=== PATIENT | female | born 1975 | race Caucasian/White ===

== ENCOUNTER 2019-07-15 20:32 | Emergency (ER) | payer BC, SELFPAY ==
[2019-07-15 20:33] VITALS: BP 150/98; PULSE 105; RESP 18; TEMP 38.1; O2SAT 96; BMI 34.0
[2019-07-15 20:36] VITALS: BP 150/98; PULSE 103; RESP 20; TEMP 38; O2SAT 96; O2SAT 97
[2019-07-15 21:40] VITALS: BP 125/86; PULSE 86; RESP 18; TEMP 38.1; O2SAT 97
[2019-07-15 21:50] LABS: Absolute Lymphocyte Count 0.94 X10^3/uL (0.83-4.51); Basophil# 0.01 X10^3/uL; Basophil% 0.2 % (0-1); Hematocrit 46.8 % (37-47); Hemoglobin 15.6 g/dL (12.0-15.0); Lymphocyte # 0.94 X10^3/ul (4.0); Lymphocyte % 17.5 % (19-41); Mean Corp Hgb Conc 33.3 g/dL (32-36); Mean Corpuscular Hgb 30.6 pg (27.0-32.0); Mean Corpuscular Volume 91.9 fL (81-99); Mean Platelet Vol. 10.5 fl (6.2-12.0); Monocyte# 0.44 X10^3/uL; Monocyte% 8.2 % (0-10); NRBC Flagged by Analyzer 0 % (0-5); Neutrophil # 3.97 X10^3/uL (2.7-7.7); Neutrophil % 73.7 % (47-70); Platelet Count 221 K/mm3 (150-450); RBC Distribution Width CV 11.9 % (11.6-14.6); RBC Distribution Width SD 40.6 fl (35.1-43.9); Red Blood Count 5.09 M/mm3 (4.2-5.4); White Blood Count 5.4 K/mm3 (4.4-11.0)
[2019-07-15] MEDS: 0.9% Normal Saline 1,000 ML 1000 ML IV (21:51)
[2019-07-15] MEDS: Ondansetron 4 MG/2 ML Vial IV (21:52)
--- NOTE | 2019-07-15 22:00 | RAD_ITS ---
STUDY: X-RAY CHEST REASON FOR EXAM: Female, 44 years old. Shortness of breath, cough, vomiting, sore throat TECHNIQUE: Frontal view COMPARISON: December 09, 2010 FINDINGS: The lungs are expanded with mild basilar interstitial prominence. Left basilar atelectasis. Normal size heart. Normal mediastinum and terell. Normal visualized pulmonary arteries. Normal visualized aortic arch and descending thoracic aorta. Mild scoliosis of the thoracic spine. Normal visualized ribs, clavicles, and shoulders. There is no demonstrated abnormality of the visualized soft tissue structures of the upper abdomen. RAD/Chest 1 View (Portable) IMPRESSION: Mild basilar interstitial prominence with left basilar atelectasis. Electronically Signed: Andrei Newman DO at 22:22 EDT Tel [phone], Service support ,
[2019-07-15 22:03] LABS: ALB/GLOB Ratio 0.9 RATIO (0.9-2.4); AST(SGOT) 45 U/L (15-37); Alanine Aminotransfer ALT/SGPT 42 U/L (13-56); Albumin, Serum 3.5 g/dL (3.2-5.0); Alkaline Phosphatase 87 U/L (45-117); Anion Gap 9 (5-15); BUN 11 mg/dL (7-18); BUN/Creat Ratio 14.7 RATIO (10-20); Calcium,Total 8.5 mg/dL (8.5-10.1); Chloride 108 mmol/L (98-107); Creatinine, Serum 0.75 mg/dL (0.55-1.02); EST Glomerular Filtration Rate 89 mL/min (>60); Est Glom Filt Rate - Afr Amer 108 mL/min (>60); Estimated Creatinine Clearance 100.04 ml/min; Glucose 100 mg/dL (74-106); Lipase 113 U/L (73-393); Potassium 3.3 mmol/L (3.5-5.1); Protein, Total 7.5 g/dL (6.4-8.2); Sodium Level 141 mmol/L (136-145)
--- NOTE | 2019-07-15 22:19 | ED.DCSUM_ITS ---
- ER Visit Summary Date of Service: 07/15/19 Chief Complaint: Cough History of Present Illness: The patient is a 44 F who presents with cough and congestion that is been getting worse over the past couple days. Patient states she feels like she has some tightness in her upper chest as well. Patient denies any sputum production. Patient states she feels short of breath at times. Patient admits to some nausea and vomiting. Patient states she feels dehydrated. Patient denies any dysuria but states her urine has been dark. Patient does admit to some pain between her shoulder blades as well. Patient also admits to a headache. Patient states she has been having a fever up to 102 at home. Physical Examination: Vital signs are stable. Patient has a temperature of 100.6 here. Patient is in no acute distress. Oral mucosa is pink and moist. Oropharynx is clear. Neck is supple. Trachea is midline. There is no JVD. Heart was regular rate and rhythm. Lungs are clear and equal bilaterally. Abdomen is soft. Bowel sounds are normal. There is no tenderness. Cranial nerves II through XII are intact. There are no focal motor or sensory deficits. Test Results: CBC and comprehensive metabolic profile were essentially within normal limits. Urinalysis was normal. Portable chest x-ray shows bibasilar interstitial prominence with left basilar atelectasis. There is no acute infiltrate. This was interpreted by myself and the radiologist. Emergency Department Course and Treatment: Patient was given IV fluids and Zofran here. Patient was given a dose of Tylenol. Patient was advised that this could be a viral upper respiratory infection including coronavirus. Patient was instructed to isolate herself for the next 2 weeks. Patient was instructed to follow-up with her primary care physician in 5 to 7 days. Patient understood and was agreeable with the plan. All questions were answered. Disposition: Discharge home Impression: Viral upper respiratory infection This note was generated with [employer] dictation software. It may contain incorrect words, spelling, and punctuation that were not noted in review of the chart prior to signing ED Disposition - Plan for ED Patient: Disposition: Home or Assisted Living Diagnosis: Viral upper respiratory tract infection with cough Instructions: ED URI Viral Referrals: Iliana Maxwell MD [COURTESY STAFF PHYSICIAN] - 3-5 Days
[2019-07-15 22:38] LABS: Mucous, Urine 0 SEEN /hpf (<or=2+); Red Blood Cells-Urine 0 SEEN /hpf (0-5)
[2019-07-15 22:42] LABS: Color, Urine Yellow (Yellow); Glucose, Dipstick Normal (Normal); Ketone-Dipstick Negative (Negative); Leukocyte Esterase-Dipstick Negative /ul (Negative); Nitrite-Dipstick Negative (Negative); Occult Blood-Urine Negative /ul (Negative); Protein-Dipstick Negative (Negative); Specific Gravity, Urine 1.015 (1.002-1.030); Urine Bilirubin Dipstick Negative (Negative); Urine Clarity Clear (Clear); Urine Urobilinogen Normal (Normal)
[2019-07-15 22:51] LABS: Bacteria 1+ /hpf (None Seen); Squamous Epithelial Cells - UA 0-5 SEEN /hpf (5-10); White Blood Cells 0-5 SEEN /hpf (0-5)
[2019-07-15] MEDS: Acetaminophen 325 MG Tablet 1000 MG PO (23:40)
[2019-07-15 23:45] VITALS: BP 126/76; PULSE 92; RESP 20; TEMP 37.6; O2SAT 97
== END 2019-07-15 23:52 | disposition home or self-care (01) ==
PROVIDERS: Emergency Provider Emergency Medicine; PCP Student in an Organized Health Care Education/Training Program
DX: J06.9 Acute upper respiratory infection, unspecified (principal)
CPT/HCPCS: 71045; 80053; 81001; 83690; 85025; 96361; 96374; 99285; J7030; A4216; J2405

== ENCOUNTER 2019-12-10 07:16 | Observation (INO) | payer BC, SELFPAY ==
[2019-12-10] VITALS (8 sets, daily range): BP systolic 121–179; BP diastolic 79–104; PULSE 59–103; RESP 12–22; TEMP 36.3–36.8; O2SAT 96–100; BMI 35.5; BMI 36.1
--- NOTE | 2019-12-10 07:19 | RAD_ITS ---
STUDY: X-RAY CHEST REASON FOR EXAM: Female, 44 years old. Chest tightness and dizziness since 12-04-19 TECHNIQUE: Single AP portable view of the chest. COMPARISON: Comparison is made with prior study dated 07/15/2019. FINDINGS: EKG electrodes are seen. The lungs are clear and expanded. There is no demonstrated pleural abnormality. Normal size heart. Normal mediastinum and terell. Normal visualized pulmonary arteries. Normal visualized aortic arch and descending thoracic aorta. Normal visualized thoracic spine. Normal visualized ribs, clavicles, and shoulders. There is no demonstrated abnormality of the visualized soft tissue structures of the upper abdomen. RAD/Chest 1 View (Portable) IMPRESSION: Normal x-ray examination of the chest. Electronically Signed: Alfredo Pickett, at 8:10 EDT , Service support ,
--- NOTE | 2019-12-10 07:19 | EKG12_ITS ---
Test Reason : SYNCOPE Blood Pressure : / mmHG Vent. Rate : 076 BPM Atrial Rate : 076 BPM P-R Int : 154 ms QRS Dur : 086 ms QT Int : 374 ms P-R-T Axes : 008 -03 012 degrees QTc Int : 420 ms Normal sinus rhythm Normal ECG Confirmed by SANTANA SEBASTIAN, MARIAMA ([id number]), newspaper editor [employer] ([id number]) on 12/11/2019 11:31:45 A M Referred By: NOHEMI Confirmed By:SUE DILLON MD
[2019-12-10 07:35] LABS: Absolute Lymphocyte Count 2.26 X10^3/uL (0.83-4.51); Absolute Neutrophil Count 4.9 X10^3/uL (2.0-7.7); Basophil# 0.04 X10^3/uL; Basophil% 0.5 % (0-1); Eosinophil# 0.15 X10^3/uL; Eosinophils% 1.8 % (0-5); Hematocrit 45.9 % (37-47); Hemoglobin 15.3 g/dL (12.0-15.0); Lymphocyte # 2.26 X10^3/ul (4.0); Lymphocyte % 27.1 % (19-41); Mean Corp Hgb Conc 33.3 g/dL (32-36); Mean Corpuscular Hgb 30.8 pg (27.0-32.0); Mean Corpuscular Volume 92.4 fL (81-99); Mean Platelet Vol. 10.8 fl (6.2-12.0); Monocyte% 10.8 % (0-10); NRBC Flagged by Analyzer 0 % (0-5); Neutrophil # 4.94 X10^3/uL (2.7-7.7); Neutrophil % 59.3 % (47-70); Platelet Count 233 K/mm3 (150-450); RBC Distribution Width CV 11.6 % (11.6-14.6); RBC Distribution Width SD 39.1 fl (35.1-43.9); Red Blood Count 4.97 M/mm3 (4.2-5.4); White Blood Count 8.3 K/mm3 (4.4-11.0)
--- NOTE | 2019-12-10 07:52 | ED.VIS.GEN ---
History of Present Illness Chief Complaint: Syncope Informant: Patient Onset: Weeks Current Severity: Mild Narrative: Patient presents with intermittent chest pressure sense of weakness for over a week, nothing triggers the sensation that comes and goes she was at work today when she had a sense of chest discomfort and pressure she went to a local urgent care center and they sent her to the emergency department. Her symptoms are resolved. Nothing specifically triggers this sense of chest pressure, she has no history of MS PE or DVT she is able to extrude all of her daily activities physical activity and eating does not trigger the discomfort she has no history of MS PE or DVT her only family history is in grandfather, she takes no medications has no chronic illnesses she has had no fever cough no coronavirus exposures eating and drinking well executing all of her daily activities that difficulty. Currently resting comfortably in the bed in no distress vital signs unremarkable mother no associated symptoms The patient does not have syncope with these episodes rather she has a sense of whole body weakness Past Medical History - Allergies and Home Meds Allergies/Adverse Reactions: Allergies tramadol Adverse Reaction (Mild, Verified 12/10/19 07:19) NEEDS FOLLOW-UP REPORTS HEADACHE Primary Care Physician: Hiro Velez DO [Primary Care Provider] - Past Medical History: None Smoking Status: Never smoker Review of Systems General: Denies: Chills, Fever, Sweats Eyes: Denies: Visual changes - bilaterally, Diplopia ENT: Denies: Rhinorrhea, Sore throat Cardiovascular: Reports: - - She describes the chest discomfort as an intermittent pressure lasts for a few minutes. Denies: Chest pain, Palpitations Respiratory: Denies: Dyspnea, Cough, Dyspnea on exertion Gastrointestinal: Denies: Abdominal pain, Nausea, Vomiting, Diarrhea, Melena, Hematochezia Genitourinary: Denies: Dysuria, Hematuria, Frequency Musculoskeletal: Denies: Back pain, Extremity Pain Skin: Denies: Rash, Wounds Neurological: Denies: Headache, Weakness, Numbness Physical Exam Vital Signs/Narrative: Vital Signs Temp Pulse Resp BP Pulse Ox 12/10/19 07:17 97.3 F L 90 16 179/104 H 100 General: Well nourished, Well developed, No Acute Distress Head: Normocephalic, Atraumatic Eyes: Perrl, EOMI ENT: Moist mucous membranes, No rhinorrhea Neck: Supple, Nontender Cardiovascular: Regular rate, Regular rhythm, No murmurs Respiratory: No distress, CTA bilaterally, Chest nontender Abdomen: Soft, Nontender, Nondistended, Normal bowel sounds Back: Nontender, Normal Inspection Extremities: Nontender, No edema Skin: Normal color, No rash Neurological: Alert, Oriented x3, Cranial nerves II-XII grossly intact, Normal Strength, Normal Sensation Psychological: Normal affect, Normal Mood Diagnostic/Tx/Re-eval - Medical Decision Making The patient is in no distress her vital signs are unremarkable, her EKG shows a sinus rhythm rate of 76 no acute injury pattern intervals within normal range given her age and her complaints and her history of differentials rather broad ED evaluations pursued she remains asymptomatic she is been having these intermittent sense of chest pressure for about a week Patient's ED screening evaluation is generally unremarkable see all those reports, we discussed inpatient versus outpatient management, we asked the hospital see the patient after discussions the plan is to admit the patient for further management of all the above Final impression chest pain Admit stable ED Disposition - Plan for ED Patient: Diagnosis: Chest pain Referrals: Hiro Velez DO [Primary Care Provider] -
[2019-12-10 07:54] LABS: Anion Gap 5 (5-15); BUN 14 mg/dL (7-18); BUN/Creat Ratio 14.3 RATIO (10-20); Calcium,Total 8.4 mg/dL (8.5-10.1); Chloride 110 mmol/L (98-107); Creatinine, Serum 0.98 mg/dL (0.55-1.02); EST Glomerular Filtration Rate 66 mL/min (>60); Est Glom Filt Rate - Afr Amer 79 mL/min (>60); Estimated Creatinine Clearance 76.56 ml/min; Glucose 91 mg/dL (74-106); Potassium 3.6 mmol/L (3.5-5.1); Sodium Level 141 mmol/L (136-145)
[2019-12-10] MEDS: 0.9% Normal Saline 1,000 ML 150 ML IV (08:00)
[2019-12-10] MEDS: Aspirin 325 MG Tablet PO (09:43)
--- NOTE | 2019-12-10 10:32 | EKG12_ITS ---
Test Reason : Blood Pressure : / mmHG Vent. Rate : 059 BPM Atrial Rate : 059 BPM P-R Int : 154 ms QRS Dur : 086 ms QT Int : 404 ms P-R-T Axes : 019 002 011 degrees QTc Int : 399 ms Sinus bradycardia Otherwise normal ECG When compared with ECG of 10-DEC-2019 07:39, MANUAL COMPARISON REQUIRED, DATA IS UNCONFIRMED Confirmed by SANTANA SEBASTIAN, MARIAMA ([id number]), slot editor ENID FRAZIER ([id number]) on 12/16/2019 8:52:06 AM Referred By: SURESH Confirmed By:SUE DILLON MD
--- NOTE | 2019-12-10 10:55 | ECHOD_ITS ---
Reason For Study: SYNCOPE/NEAR SYNCOPE Procedure This was a 2D Doppler, Color Flow transthoracic echocardiogram. Exam performed in department. Left Ventricle Normal LV size. The estimated ejection fraction is 60 %. No evidence for diastolic dysfunction. No regional wall motion abnormalities noted. Right Ventricle Normal RV size. Normal systolic function. Atria Normal left atrium. Normal right atrium. No doppler evidence for ASD. Mitral Valve There is no mitral valve stenosis. No mitral valve insufficiency. Tricuspid Valve There is no tricuspid stenosis. Unable to estimate RV systolic pressure due to insufficient tricuspid regurgitant envelope. Trivial tricuspid valve insufficiency. Aortic Valve Trisinus/trileaflet aortic valve. There is no aortic stenosis. No aortic valve insufficiency. Pulmonic Valve There is no pulmonic valvular stenosis. No pulmonic valve insufficiency. Great Vessels Normal aortic root. Pericardium/Pleural No pericardial effusion. MMode/2D Measurements & Calculations LVIDd: 4.7 cm IVSd: 0.83 cm Ao root diam: 3.7 cm LVIDs: 3.0 cm LVPWd: 0.77 cm RVDd: 3.3 cm FS: 35.9 % LAV(MOD-bp): 59.3 ml LA A4 area: 19.9 cm2 LA dimension(2D): 3.6 cm LAV(MOD-bp) Indexed: 26.4 ml/m2 LAV(MOD-sp2): 61.9 ml LAV(MOD-sp4): 56.0 ml RA A4 area: 16.3 cm2 Time Measurements MV dec time: 0.20 sec Doppler Measurements & Calculations MV E max aubrey: 101.9 cm/sec Lat Peak E' Aubrey: 13.8 cm/sec Med Peak E' Aubrey: 11.4 cm/sec MV A max aubrey: 85.4 cm/sec E/E' lat: 7.4 E/E' med: 8.9 MV E/A: 1.2 Ao V2 max: 164.8 cm/sec LV V1 max: 150.0 cm/sec PA V2 max: 106.0 cm/sec Ao max P.9 mmHg LV V1 max P.0 mmHg Interpretation Summary The estimated ejection fraction is 60 %. No evidence for diastolic dysfunction. Ordering Physician: Alfredo Robertson Referring Physician: Hiro Velez Performed By: Shila Barrientos RDCS, RVT
--- NOTE | 2019-12-10 15:05 | STRESSREP_ITS ---
Stress Test Report Date: 12/10/2019 Procedure: Pharmacologic stress nuclear imaging study Indications: Chest pain Consent: Per the patient Procedure: The patient underwent pharmacologic (Regadenoson) evaluation with a peak heart rate of 112 beats per minute (63 %predicted maximal heart rate) and a peak blood pressure of 128/94 mmHg. The baseline ECG demonstrated normal sinus rhythm. EKG during lexiscan infusion revealed no significant ischemic changes. EKG post infusion revealed no significant ischemic changes [There were no cardiac dysrhythmias pretest, during pharmacologic infusion, or recovery]. Patient had chest tightness with Lexiscan infusion which is likely nonspecific response. The examination was discontinued secondary to completion of protocol. Impression: 1. Lexiscan stress test test is negative for Lexiscan infusion induced EKG changes of ischemia. 2. Lexiscan stress test test is positive for Lexiscan infusion induced chest tightness which is likely a nonspecific response. 3. Results of the nuclear portion of the test is as below Myocardial perfusion imaging study: Technique: The patient was injected with 14.8 millicuries of technetium 99m Cardiolite and subsequently rest SPECT Cardiolite nuclear imaging was obtained in the horizontal long, vertical long, and short axis views. The patient underwent pharmacologic (Regadenoson) evaluation. Please see above for details. The patient was injected with 44.7 millicuries of technetium 99m Cardiolite and subsequently stress SPECT Cardiolite nuclear imaging was obtained in the horizontal long, vertical long, and short axis views. A gated Cardiolite study at peak stress was obtained. Interpretation: Rest and stress SPECT Cardiolite nuclear imaging status post realignment, normalization, and attenuation correction demonstrate overall normal myocardial radioisotope uptake. Gated images reveal no significant regional wall motion abnormalities. The reported LVEF is greater than 70 %. Impression: 1. There is no evidence of significant ischemia or infarction. 2. Estimated ejection fraction is greater than 70%. This note was generated with [employer] software. It may contain incorrect words, spelling, and punctuation that were not noted in checking the note before signing.
--- NOTE | 2019-12-10 17:40 | HP.PCM_ITS ---
Problem List (1) Pre-syncope Status: Acute (2) Chest pain Status: Acute Qualifiers: Chest pain type: precordial pain Qualified Code(s): R07.2 - Precordial pain History of Present Illness Date of Admission: 12/10/19 Chief Complaint: Chest pain, presyncope The patient is a 44 year old F who was seen in the emergency room at [facility] with chief complaints of chest pain which she described as a tightness in the center of her chest area radiating into her left upper neck area along with several episodes of severe lightheadedness/presyncope since this past Saturday. Patient states that the chest discomfort is been continuous since Saturday, she did not complain that it increased with activity, patient did not complain of any shortness of breath, diaphoresis, or nausea. Work-up in the ER included an EKG which showed normal sinus rhythm without evidence of ischemic changes, patient's chest x-ray was unremarkable, patient's labs including cardiac enzymes were unremarkable. Patient will be placed into observation status on PCU, cardiac enzymes will be repeated and she will have a pharmacological nuclear stress test today as well as an echocardiogram. 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 Denies: Claudication, Chest Pressure, Edema, Heaviness, Orthopnea, Palpitations, Paroxysmal Noc. Dyspnea Respiratory: Denies: Cough, Hemoptysis, Pleuritic Pain, Shortness of Breath, Shortness of breath at rest, Shortness of breath upon exertion, Sputum production Gastrointestinal: Denies: Abdominal Pain, Constipation, Diarrhea, Hematemesis, Hematochezia, Nausea, Melena, Vomiting Genitourinary: Denies: Dysuria, Frequency, Hematuria, Hesitancy, Urgency Gynecological: Denies: Breast symptoms Musculoskeletal: Denies: Back Pain, Foot Pain, Hand Pain, Joint Pain, Joint stiffness, Joint swelling, Joint Tenderness, Leg Pain Skin: Denies: Dryness, Pruritis, Rash Neurological: Denies: Blurred vision, Double vision, Change in Speech, Slurred speech, Difficulty swallowing, Focal weakness, Headaches, Numbness, Tingling Psychiatric: Denies: Anxiety, Depression, Homicidal Ideations, Suicidal Ideations Endocrine: Denies: Change in Body Habitus, Heat/ Cold Intolerance, Polydipsia, Polyuria Hematologic/ Lymphatic: Denies: Adenopathy, Anemia, Easy Bruising, Easy Bleeding, Petechiae, Purpura VTE Information - Inpt Only VTE Present on Admission: No VTE Mechan Device Prophylaxis: None VTE Pharm Prophylaxis ordered?: No Reason prophylaxis not ordered:: Treatment Not Indicated Patient Problems: Active and Suspected Problems Chest pain (Acute) Pre-syncope (Acute) - Physical Exam Vitals/I&O's: Vital Signs Temp Pulse Resp BP Pulse Ox 98.1 F 66 14 142/88 H 100 12/10/19 17:21 12/10/19 17:21 12/10/19 17:21 12/10/19 17:21 12/10/19 17:21 Oxygen Delivery Method Room Air Weight: 111 kg Body Mass Index (BMI) 36.1 Intake and Output for Last 24 Hours 12/08/19 12/09/19 12/10/19 23:59 23:59 23:59 Intake Total 532.5 / 532.5 Balance 532.5 / 532.5 General: Alert, Oriented x3, Cooperative, No apparent distress, Well developed, Well nourished HEENT: Atraumatic, PERRLA, EOMI, Normocephalic Oral: Moist Mucosa Neck: Supple, No JVD, Negative Carotid Bruits, Trachea Midline, Thyroid Normal Size and Texture Lungs: Clear to auscultation, Normal air movement, No rhonchi, No wheeze, No rales Cardiovascular: Regular rate, Regular Rhythm, Normal S1, Normal S2, No murmurs, PMI Normal, No rub noted, No Gallop Abdomen: Bowel Sounds Present, Soft, Non Tender, Non-Distended Extremities: No clubbing, No cyanosis, No edema, Capillary Refill Less than 3 Seconds Skin: No rashes, No breakdown Musculoskeletal: No Tenderness to Palpation of Joints or Extremities Neurological: Cranial nerves II-XII grossly intact, Neuro grossly intact, Sensory exam intact to light touch and pain, Coordination normal Psych/Mental Status: Normal Affect, Appropriate, Alert and oriented to time, place, person, mood and affect Laboratory Results 12/10/19 07:25: WBC 8.3, RBC 4.97, Hgb 15.3 H, Hct 45.9, MCV 92.4, MCH 30.8, MCHC 33.3, RDW Std Deviation 39.1, RDW Coeff of Nura 11.6, Plt Count 233, MPV 10.8, Immature Gran % (Auto) 0.500, Neut % (Auto) 59.3, Lymph % (Auto) 27.1, [place] % (Auto) 10.8 H, Eos % (Auto) 1.8, Baso % (Auto) 0.5, Absolute Neuts (auto) 4.9, Absolute Lymphs (auto) 2.26, Nucleated RBC % 0 12/10/19 07:25: Sodium 141, Potassium 3.6, Chloride 110 H, Carbon Dioxide 26.0, Anion Gap 5, BUN 14, Creatinine 0.98, Estim Creat Clear Calc 76.56, Est GFR (MDRD) Af Amer 79, Est GFR (MDRD) Non-Af 66, BUN/Creatinine Ratio 14.3, Glucose 91, Calcium 8.4 L, Troponin I < 0.015 12/10/19 10:35: Troponin I < 0.015 12/10/19 14:43: Troponin I < 0.015 Current Medications Morphine Sulfate () 2 mg IV Q3H PRN PRN PRN Reason: Pain Score 6-10/10 Sodium Chloride () 10 - 40 ml IV UD PRN PRN Reason: SALINE FLUSH Assessment/Plan All Active Problems Chest pain (Acute) Pre-syncope (Acute) #1 precordial chest tightness/pain-etiology unclear, patient will be placed in observation status on PCU, patient will have her troponin repeated at 1030 this morning, if this is negative, patient will have a resting pharmacological nuclear stress test. Patient will also have an echocardiogram performed today #2 presyncope-etiology unclear, patient will have an echocardiogram, she will be monitored on telemetry. OBSV E&M: [id number] Initial observation care L3
--- NOTE | 2019-12-10 18:17 | DCINST_ITS ---
- Discharge Diagnoses Current Active Problems: Current Active and Chronic Problems Chest pain (Acute) Pre-syncope (Acute) You will use the following diet at home:: No restrictions Your food should be the consistency of: Regular Your liquids should be the consistency of: Regular/Thin Discharge Activity: Return to Normal Activity Weight Bearing Status: Full weight bearing Allergies/Adverse Reactions: Allergies tramadol Adverse Reaction (Mild, Verified 12/10/19 07:19) NEEDS FOLLOW-UP REPORTS HEADACHE Medications to take at Discharge NK 07/15/19 Primary Care Physician: Hiro Velez DO [Primary Care Provider] - Please follow up with your Primary Care Physician in: in 1-2 weeks Test Results: Test results from this visit will be discussed in further detail at your follow- up appointment, if applicable.
--- NOTE | 2019-12-10 18:18 | PCM.DC.SUM ---
Discharge Date and Diagnosis - Problem List Patient Problems: Active and Suspected Problems Chest pain (Acute) Pre-syncope (Acute) Date of Admission: 12/10/19 Date of Discharge: 12/10/19 - Primary Discharge Diagnosis Acute Problems: Active Problems #1 musculoskeletal chest pain #2 presyncope-etiology unknown Hospital Course and Treatment Imaging Results: 12/10/19 10:55 Echo Complete [ECHO] Routine Nuclear Stress Test - Chemical [NM] Routine Operations: None Procedures: 2-D Echocardiogram, Nuclear stress test Summary of Care Provided: The patient is a 44 year old F seen in the emergency room at [facility] with a complaint of chest pain which was continuous over the past 6 days. She also complained of 3 episodes of near syncope, work-up in the emergency room included an EKG, chest x-ray, and labs which were overall unremarkable. Patient was placed in observation status on PCU, repeat cardiac enzymes were negative, patient underwent a resting nuclear pharmacological stress test which showed no evidence of reversible ischemia, she also had an echocardiogram which showed no evidence of impaired ejection fraction or valvular heart disease. Patient's orthostatic vitals were not positive. On 12/10/2019, patient was seen and examined: On examination she appeared in good health and spirits, she does not appear to be in any distress. Vital signs as documented. Skin warm and dry and without overt rashes. Neck without JVD, thyroid appears normal, trachea is midline, neck is supple. Lungs clear, normal air movement was noted. Heart exam notable for regular rhythm, normal sounds and absence of murmurs, rubs or gallops. Abdomen unremarkable and without evidence of organomegaly, masses, or abdominal aortic enlargement, bowel sounds are present in all 4 quadrants, no abdominal tenderness was noted. Extremities nonedematous, no cyanosis was noted, no clubbing was noted. Neuro: Cranial nerves II through XII are grossly intact, no focal motor deficits were noted, sensation to light touch and pinprick is intact, motor exam 5/5 throughout. Psych: Patient is alert and oriented x3, she does not appear anxious or depressed, she does not appear agitated. On 12/10/2019, patient appeared to be stable for discharge home, it was unclear the etiology of the patient's presyncopal episodes, patient's chest discomfort was felt to be musculoskeletal in nature. Patient Problems: Active and Suspected Problems Chest pain (Acute) Pre-syncope (Acute) - Physical Exam Vitals/I&O's: Vital Signs Temp Pulse Resp BP Pulse Ox 98.1 F 75 14 125/79 H 100 12/10/19 17:21 12/10/19 18:07 12/10/19 17:21 12/10/19 18:07 12/10/19 17:21 Oxygen Delivery Method Room Air Weight: 111 kg Body Mass Index (BMI) 36.1 Orthostatic Vital Signs Start: 12/10/19 18:07 Freq: q24h Status: Active Protocol: Activity Type Activity Date Activity User E-Sign Co-Sign Detail Recorded Client Recorded Date Recorded By Document 12/10/19 18:07 DS [id number] 12/10/19 18:10 DS 12/10/19 18:07 Orthostatic Vitals Standing -Blood Pressure (90/60-120/80) 142/96 H -Extremity Use Left Arm -Pulse Rate (60-100) 103 H Sitting -Blood Pressure (90/60-120/80) 150/96 H -Extremity Use Left Arm -Pulse Rate (60-100) 83 Lying -Blood Pressure (90/60-120/80) 125/79 H -Extremity Use Left Arm -Pulse Rate (60-100) 75 Intake and Output for Last 24 Hours 12/08/19 12/09/19 12/10/19 23:59 23:59 23:59 Intake Total 1152.5 / 1152.5 Balance 1152.5 / 1152.5 Laboratory Results 12/10/19 07:25: WBC 8.3, RBC 4.97, Hgb 15.3 H, Hct 45.9, MCV 92.4, MCH 30.8, MCHC 33.3, RDW Std Deviation 39.1, RDW Coeff of Nura 11.6, Plt Count 233, MPV 10.8, Immature Gran % (Auto) 0.500, Neut % (Auto) 59.3, Lymph % (Auto) 27.1, [place] % (Auto) 10.8 H, Eos % (Auto) 1.8, Baso % (Auto) 0.5, Absolute Neuts (auto) 4.9, Absolute Lymphs (auto) 2.26, Nucleated RBC % 0 12/10/19 07:25: Sodium 141, Potassium 3.6, Chloride 110 H, Carbon Dioxide 26.0, Anion Gap 5, BUN 14, Creatinine 0.98, Estim Creat Clear Calc 76.56, Est GFR (MDRD) Af Amer 79, Est GFR (MDRD) Non-Af 66, BUN/Creatinine Ratio 14.3, Glucose 91, Calcium 8.4 L, Troponin I < 0.015 12/10/19 10:35: Troponin I < 0.015 12/10/19 14:43: Troponin I < 0.015 Current Medications Morphine Sulfate () 2 mg IV Q3H PRN PRN PRN Reason: Pain Score 6-10/10 Sodium Chloride () 10 - 40 ml IV UD PRN PRN Reason: SALINE FLUSH Discharge Activity: Return to Normal Activity Weight Bearing Status: Full weight bearing Home Medications: Medications to take at Discharge NK 07/15/19 Primary Care Physician: Hiro Velez DO [Primary Care Provider] - Please follow up with your Primary Care Physician in: in 1-2 weeks Disposition: Home Minutes spent on discharge:: 30 Patient Condition:: Stable Medical Necessity - Tobacco Use Smoking Status: Never smoker Tobacco Use: Non-smoker Meaningful Use Info Meaningful Use Diagnoses (Choose all that apply): None applicable OBSV E&M: 77080 Observ/hosp same date L3
== END 2019-12-10 18:17 | disposition home or self-care (01) ==
LOC: ED 08:07 → PCU 09:42
PROVIDERS: Admitting Provider Internal Medicine; Emergency Provider Emergency Medicine; PCP Student in an Organized Health Care Education/Training Program; Visit Provider Internal Medicine
DX: R55 Syncope and collapse (principal); R07.89 Other chest pain; I07.1 Rheumatic tricuspid insufficiency
CPT/HCPCS: 36415; 71045; 78452; 80048; 84484; 85025; 93005; 93017; 93306; 96360; 96361; 99218; 99285; A9500; J7030; A4216; G0378; J2785

== ENCOUNTER 2022-07-09 22:02 | Emergency (ER) | payer BC, SELFPAY ==
[2022-07-09 22:03] VITALS: BP 197/114; PULSE 88; RESP 20; TEMP 36.8
--- NOTE | 2022-07-09 22:31 | EX.ED.GENINJ ---
HPI History of Present Illness Chief Complaint: Fall Detail of Chief Complaint: Injury due to fall Informant: patient Onset/Context/Timing Onset: Hours Mechanism/Context: Blunt Injury and Fall Location of pain/injuries: Right Knee, Left hand, Left knee and Left ankle Quality of Pain: Dull Location: Left hand, right and left knee, left ankle, Current Severity: Mild Maximum Severity: Moderate Worsened by: Weightbearing Relieved by: Nothing Associated Symptoms Associated Symptoms: Negative for Parasthesias, Weakness, Loss of function, Inability to ambulate or Loss of consciousness Narrative Narrative: Patient fell. Missed a step. She denies loss of conscious. Is not amnestic. Denies neck pain. She denies paresthesia, anesthesia motors. She complains of pain in her jaw. She denies her teeth being malaligned. She denies chest pain or shortness of breath. He states she did injure her right hand. She present has no pain. She complains of right and left knee pain with abrasions. She also complains of left ankle pain. She localizes the pain over the base of the fifth metatarsal. States when she bears weight the pain radiates up towards her knee. Tetanus Immunization: Unknown PFSH PFSH Home Medications hydrocodone-acetaminophen 5-325mg 5mg-325mg 1 tab PO Q6H PRN PRN Pain 3 days #10 TABLETS 07/09/22 [Rx Last Taken Unknown] Allergy/AdvReac Type Severity Reaction Status Date / Time tramadol AdvReac Mild NEEDS Verified 12/10/19 07:19 FOLLOW-UP Social History (Updated 07/09/22 @ 22:[address] Quinten Sharma MD) household members: family Smoking Status: Never smoker substance use type: does not use ROS ROS ED Eyes Eyes: Denies blurry vision or change in vision ENT ENT ED: Denies ear pain, rhinorrhea or sore throat Cardiovascular Cardiovascular: Denies chest pain or palpitations Respiratory/Chest Respiratory/Chest: Denies cough, dyspnea or dyspnea on exertion Gastrointestinal Gastrointestinal: Denies abdominal pain, nausea or vomiting Musculoskeletal Musculoskeletal: Reports other Details: Pain as mentioned in the HPI ; Denies back pain, myalgias or neck pain Integumentary Reports Abrasions Neurologic Neurologic: Denies headache(s), paresthesias or weakness Hematologic/Lymphatic Hematologic/Lymphatic: Denies easy bleeding or easy bruising EXAM Physical Exam Const Vital Signs: 07/09/22 22:03 07/09/22 23:04 Temperature 98.2 F Temperature Source Temporal Pulse Rate 88 Respiratory Rate 20 H Respiratory Effort Normal Non-Labored Respiratory Depth Normal Respiratory Pattern Normal Blood Pressure 197/114 H Blood Pressure Mean 141 Oxygen Delivery Method Room Air Positive well nourished, well developed and obese General Appearance ED: well developed and NAD Nutritional Appearance: obese HEENT Denies TM's clear atraumatic; Negative for tenderness Nose: Negative for septum abnormal Tympanic Membrane ED: Negative for TM's clear Eyes PERRL and EOMs intact bilaterally General Eye ED: Yes other Other Details: There is no subconjunctival hemorrhage. Neck full ROM General: Negative for tenderness Chest Wall Negative for inspection of chest normal or palpation of chest normal Resp normal respiratory effort and clear to auscultation bilaterally Cardio regular rhythm, S1 normal heart sound and no murmurs Rate: regular rate GI normal to inspection, nondistended, normoactive bowel sounds, non-tender, non-distended and no masses Back/Spine normal to inspection and no thoracic nor lumbar tenderness Extremity Negative for normal to inspection Extremity Narrative: There is soft tissue swelling over the thenar eminence. There is pain the patient over the phalanges of the left little finger and first metacarpal bone. There is no pain the patient over the distal radius ulna, lateral or medial epicondyle, olecranon process or radial head. There is no pain ovation over the proximal humerus, AC joint or clavicle on the left. The examination of the right upper extremity is unremarkable. Median, radial and ulnar nerve function is intact bilaterally. Patient has an abrasion noted over right and left patella. There is pain to palpation of her right and left patella. The right knee is swollen in comparison to the left. There is bruising. There is joint line tenderness. There is no lax with varus valgus stress testing. Tim's test is negative. Modified Fish's test reveals a click and pain laterally. She states she had problems with that knee. Examination of the left knee reveals no laxity varus valgus stress testing. Tim's test and modified Fish's test are both negative. There is no pain in the popliteal fossa of right or left lower extremity. There is swelling over the base of the fifth metatarsal. There is pain ovation over the base of fifth metatarsal. There is no pain the patient over the lateral medial malleolus or posterior aspect of the lateral malleolus. There is no laxity with drawer testing. Neuro oriented x3, CN's II-XII intact bilaterally, moves all extremities, no focal motor deficits and no sensory deficits noted Leonila Coma Scale: document GCS findings Spontaneous Obeys Commands Oriented 15 Sensorium / Orientation: alert Motor Exam: strength 5/5 throughout Psych mental status grossly normal and thought process normal Skin no rashes or lesions noted, No no wounds, skin turgor normal and no jaundice MDM MDM MDM Narrative Medical decision making narrative: X-ray of the left ankle was not obtained based on the [place] ankle rules. Because of pain the patient the base of the metatarsal to evaluate for fracture x-ray of the foot was obtained. Because patient has pain to palpation over the right and left patella with direct trauma to both knees will obtain x-ray to rule out patella fracture. Suspect patient may have a degenerative meniscus disease right knee which is chronic and not related to today's fall. Because of the findings on examination of the left hand x-ray was obtained to evaluate for contusion versus fracture. Patient was medicated with hydrocodone acetaminophen 5?3 25. Radiography Chest X-Ray - ED: Read by ED Physician (Three-view x-ray of the left hand reveals no fracture, subluxation or dislocation. Three-view x-ray of the left foot reveals no fracture, subluxation dislocation. There is no widening the mortise. 4 view x-ray of the left knee reveals no acute process. There is no fracture, subluxation or disloc) Treatment and Re-Evaluation Narrative: Patient was informed of her x-ray results. She was discharged with prescription for Vicodin. Discharge Plan Triage Chief Complaint: Fall ED Provider: Quinten Sharma Dx/Rx/DC Orders Clinical Impression: Injury due to fall, Effusion of right knee, Contusion of left knee, initial encounter, Contusion of left hand, initial encounter, Strain of foot, left, Abrasion, right knee, initial encounter, Abrasion, left knee, initial encounter Instructions: Treating?Strains and Sprains, ED Soft Tissue Contusion, ED Knee Effusion Prescriptions: New hydrocodone-acetaminophen [hydrocodone-acetaminophen] 5-325 mg tablet 1 tab PO Q6H PRN PRN (Reason: Pain) 3 Days Qty: 10 0RF Primary Care Provider: Hiro Velez Referrals: Hiro Velez, [Primary Care Provider] - 1 Week if not improving Cornelio Horton MD [Med Staff - Active Staff] - 1 Week Disposition Disposition: Home, Self Care
[2022-07-09] MEDS: HYDROcodone Bitartrate/Apap 5/325 Tablet PO (22:38)
--- NOTE | 2022-07-09 22:50 | RAD_ITS ---
INDICATION: Injury/Pain EXAMINATION/TECHNIQUE: X-RAY - RIGHT XR Knee Complete 4 Views or More 4 VIEWS COMPARISON: Left knee radiograph on same day. FINDINGS: SOFT TISSUES: No soft tissue swelling or gas. No radiopaque foreign body. BONES/JOINTS: No acute fracture. Concern for 8mm lateral femoral condyle subchondral cyst or osteochondral defect.. Normal alignment. Preservation of the joint space.. No sclerotic or destructive changes observed. RAD/Knee 4 or More Views IMPRESSION: Lateral femoral condyle subchondral cyst versus osteochondral defect. No other acute finding. Electronically Signed: Marcelo Hester MD at 23:45 EDT ,
--- NOTE | 2022-07-09 22:50 | RAD_ITS ---
INDICATION: Injury/Pain EXAMINATION/TECHNIQUE: X-RAY - LEFT XR Knee Complete 4 Views or More 4 VIEWS COMPARISON: None. FINDINGS: SOFT TISSUES: No soft tissue swelling or gas. No radiopaque foreign body. BONES/JOINTS: No acute fracture or subluxation.. Normal alignment. Preservation of the joint space.. No sclerotic or destructive changes observed. Minimal tricompartment osteophyte formation. RAD/Knee 4 or More Views IMPRESSION: Minimal tricompartment degenerative change compatible with age.. Electronically Signed: Marcelo Hester MD at 23:40 EDT ,
--- NOTE | 2022-07-09 22:50 | RAD_ITS ---
INDICATION: Injury/Pain EXAMINATION/TECHNIQUE: X-RAY - LEFT XR Foot Min 3 Views 3 VIEWS COMPARISON: Right foot radiograph 09/23/2013. FINDINGS: SOFT TISSUES: No soft tissue swelling or gas. No radiopaque foreign body. BONES/JOINTS: No acute fracture or subluxation.. Normal alignment. Preservation of the joint space.. No sclerotic or destructive changes observed. Moderate plantar calcaneal enthesophyte. RAD/Foot min 3 Views IMPRESSION: No evidence of acute injury. . Electronically Signed: Marcelo Hester MD at 23:42 EDT ,
--- NOTE | 2022-07-09 22:50 | RAD_ITS ---
INDICATION: Injury/Pain EXAMINATION/TECHNIQUE: X-RAY - LEFT XR Hand Min 3 Views 3 VIEWS COMPARISON: None. FINDINGS: SOFT TISSUES: No soft tissue swelling or gas. No radiopaque foreign body. BONES/JOINTS: No acute fracture or subluxation.. Normal alignment. Preservation of the joint space.. No sclerotic or destructive changes observed. RAD/Hand Min 3 Views IMPRESSION: No evidence of acute injury.. Electronically Signed: Marcelo Hester MD at 23:43 EDT ,
== END 2022-07-10 00:01 | disposition home or self-care (01) ==
PROVIDERS: Emergency Provider Emergency Medicine; PCP Student in an Organized Health Care Education/Training Program; Visit Provider Emergency Medicine
DX: S80.02XA Contusion of left knee, initial encounter (principal); S96.912A Strain of unspecified muscle and tendon at ankle and foot level, left foot, initial encounter; W10.9XXA Fall (on) (from) unspecified stairs and steps, initial encounter; S80.211A Abrasion, right knee, initial encounter; S80.212A Abrasion, left knee, initial encounter; S60.222A Contusion of left hand, initial encounter; M25.461 Effusion, right knee
CPT/HCPCS: 73130; 73564; 73630; 99283